=== PATIENT | female | born 1950 | race Caucasian/White ===

== ENCOUNTER 2017-08-15 20:06 | Emergency (ER) | payer OTHER ==
[~2017-08-15 20:06] MED LIST: LISI-363 PO; METF-324 PO
[2017-08-15 21:57] VITALS: BP 135/78; PULSE 70; RESP 18; TEMP 97.9; O2SAT 97
[2017-08-15] MEDS ORDERED: METF500T PO (23:21)
[2017-08-15] MEDS ORDERED: LISI10TA3 PO (23:22)
--- NOTE | 2017-08-15 23:25 | PD ---
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 This is a 66-year-old female with history of diabetes and hypertension, here for evaluation of several complaints. The patient complains of having pain all over. She is complaining of headache that started 2 days ago, constant, gradual onset, pressure, currently 8 out of 10 that radiates into her neck, back , and bilateral hips. These other pains have been going on for quite some time. She has been out of her metformin and lisinopril for about a week. She called her primary care physician's office yesterday and outpatient labs were ordered. She denies fevers or chills. She has taken ibuprofen with only mild relief of symptoms. PFSH Past Medical History Diabetes: Yes Patient Takes Glucophage: No (UNKNOWN ) Diminished Hearing: No Hypertension: Yes Musculoskeletal: Yes (DEGENERATIVE DISC DISEASE) ?: Not Past Surgical History Appendectomy: Yes Other Surgery: No Social History Alcohol Use: No Tobacco Use: No Substance Use: No Allergies-Medications (Allergen,Severity, Reaction): Coded Allergies: No Known Allergies (Verified Adverse Reaction, Unknown, 08/15/17) Reported Meds & Prescriptions Reported Meds & Active Scripts Active Reported Lisinopril 10 Mg Tab 10 Mg PO DAILY Metformin (Metformin HCl) 500 Mg Tab 500 Mg PO BIDPC Review of Systems Except as stated in HPI: all other systems reviewed are Neg Physical Exam Narrative GENERAL: Well-developed, well-nourished, ambulated from triage to exam room without difficulty and without assistance, no apparent distress. SKIN: Focused skin assessment warm/dry. HEAD: Atraumatic. Normocephalic. EYES: Pupils equal and round. No scleral icterus. No injection or drainage. ENT: Mucous membranes pink and moist. NECK: Trachea midline. No JVD. CARDIOVASCULAR: Regular rate and rhythm. Distal pulses brisk and equal bilaterally. RESPIRATORY: No accessory muscle use. Clear to auscultation. Breath sounds equal bilaterally. GASTROINTESTINAL: Abdomen soft, non-tender, nondistended. MUSCULOSKELETAL: No obvious deformities. No clubbing. No cyanosis. No edema. NEUROLOGICAL: Awake and alert. No obvious cranial nerve deficits. Motor grossly within normal limits. Normal speech. PSYCHIATRIC: Appropriate mood and affect; insight and judgment normal. Data Data Last Documented VS Vital Signs Date Time Temp Pulse Resp B/P (MAP) Pulse Ox O2 Delivery O2 Flow Rate FiO2 08/16/17 00:10 64 135/78 (97) 141/72 (95) 08/16/17 00:00 98 Room Air 08/15/17 21:57 97.9 18 Orders Orders Electrocardiogram (08/15/17 23:22) Ckmb (Isoenzyme) Profile (08/15/17 23:22) Complete Blood Count With Diff (08/15/17 23:22) Comprehensive Metabolic Panel (08/15/17 23:22) Magnesium (Mg) (08/15/17 23:22) Prothrombin Time / Inr (Pt) (08/15/17 23:22) Act Partial Throm Time (Ptt) (08/15/17 23:22) Troponin I (08/15/17 23:22) Chest, Single Ap (08/15/17 23:22) Ecg Monitoring (08/15/17 23:22) Bilateral Bp Monitoring (08/15/17 23:22) Iv Access Insert/Monitor (08/15/17 23:22) Oximetry (08/15/17 23:22) Oxygen Administration (08/15/17 23:22) Sodium Chloride 0.9% Flush (Ns Flush) (08/15/17 23:30) Lipase (08/15/17 23:22) Ct Brain W/O Iv Contrast(Rout) (08/15/17 ) Ct Cerv Spine W/O Contrast (08/15/17 ) Metoclopramide Inj (Reglan Inj) (08/15/17 23:30) Ketorolac Inj (Toradol Inj) (08/15/17 23:30) CKMB (08/15/17 23:42) CKMB% (08/15/17 23:42) Mri C Spine W/O Contrast (08/16/17 ) Mri L Spine W/O Contrast (08/16/17 ) Mri T Spine W/O Contrast (08/16/17 ) Mri Brain W/O Contrast (08/16/17 ) Acetaminophen (Tylenol) (08/16/17 05:00) Labs Laboratory Tests Test 08/15/17 23:42 White Blood Count 6.4 TH/MM3 Red Blood Count 4.83 MIL/MM3 Hemoglobin 13.9 GM/DL Hematocrit 40.5 % Mean Corpuscular Volume 83.9 FL Mean Corpuscular Hemoglobin 28.9 PG Mean Corpuscular Hemoglobin Concent 34.4 % Red Cell Distribution Width 13.2 % Platelet Count 251 TH/MM3 Mean Platelet Volume 9.6 FL Neutrophils (%) (Auto) 30.9 % Lymphocytes (%) (Auto) 56.6 % Monocytes (%) (Auto) 6.0 % Eosinophils (%) (Auto) 5.6 % Basophils (%) (Auto) 0.9 % Neutrophils # (Auto) 2.0 TH/MM3 Lymphocytes # (Auto) 3.6 TH/MM3 Monocytes # (Auto) 0.4 TH/MM3 Eosinophils # (Auto) 0.4 TH/MM3 Basophils # (Auto) 0.1 TH/MM3 CBC Comment DIFF FINAL Differential Comment Prothrombin Time 10.1 SEC Prothromb Time International Ratio 1.0 RATIO Activated Partial Thromboplast Time 29.4 SEC Blood Urea Nitrogen 19 MG/DL Creatinine 0.75 MG/DL Random Glucose 100 MG/DL Total Protein 7.6 GM/DL Albumin 3.8 GM/DL Calcium Level 9.3 MG/DL Magnesium Level 2.1 MG/DL Alkaline Phosphatase 101 U/L Aspartate Amino Transf (AST/SGOT) 22 U/L Alanine Aminotransferase (ALT/SGPT) 29 U/L Total Bilirubin 0.3 MG/DL Sodium Level 139 MEQ/L Potassium Level 4.3 MEQ/L Chloride Level 104 MEQ/L Carbon Dioxide Level 25.7 MEQ/L Anion Gap 9 MEQ/L Estimat Glomerular Filtration Rate 78 ML/MIN Total Creatine Kinase 116 U/L Creatine Kinase MB 2.1 NG/ML Troponin I LESS THAN 0.02 NG/ML Lipase 169 U/L MDM Medical Decision Making Medical Screen Exam Complete: Yes Emergency Medical Condition: Yes Medical Record Reviewed: Yes Differential Diagnosis Tension headache, cluster headache, migraine headache, SAH/meningitis/ encephalitis unlikely, cervical strain, PMR, hyperglycemia, ACS, dissection unlikely Narrative Course Vital signs reviewed. CBC is essentially unremarkable. CMP is unremarkable. Lipase is 169. Cardiac enzymes are negative. CT head: CONCLUSION: No acute intracranial findings. CT cervical spine: CONCLUSION: Prominent multilevel degenerative findings of the cervical spine. Broad-based disc osteophyte complex and central disc protrusion at C6-7 resulting in severe central canal narrowing. Broad-based disc osteophyte complex at C5-6 resulting in moderate severity central canal narrowing. Neural foraminal narrowing at multiple levels. Patient was made aware of all findings. She is resting comfortably. She still has a slight frontal headache, however her head and neck pain has improved after receiving IV Reglan and IV Toradol. She does report feeling paresthesias in her bilateral hands and feet. T there is no notable weakness in her upper or lower extremities on physical exam. Given CT cervical spine findings, MRI of the entire spine will be ordered to evaluate for possible cord compression. MRI cervical spine: CONCLUSION: Degenerative findings of cervical spine. Broad-based disc osteophyte complexes at C5-6 and C6-7 result in moderate severity central canal stenosis at these levels. There is effacement of the CSF anteriorly and posteriorly at these levels. Mild spinal cord deformity anteriorly at C5-6. No spinal cord deformity at C6-7. No spinal cord signal abnormality identified. MRI T-spine: CONCLUSION: Small right lateral disc protrusion at T1-2. Central canal diameter within normal limits at all levels. Neural foraminal diameters within normal limits at all levels. MRI L-spine: CONCLUSION: Multilevel degenerative findings in lumbar spine. At L4-5 there is broad-based disc bulge and facet arthrosis resulting in mild central canal narrowing mild bilateral neural foraminal narrowing. At L5-S1 there is moderate to severe bilateral facet arthrosis with mild grade 1 anterolisthesis. Central canal diameter within normal limits at this level. MRI brain: CONCLUSION: Brain MRI within normal limits for age. 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 She is resting comfortably. Normal motor strength in bilateral upper and lower extremities. No physical exam findings to suggest cord compression. The patient also endorses that she has had lumbar injections in the past. She is overall very well-appearing and is very pleasant. All questions were answered. She was provided a copy of all MRI reports. She is stable for discharge home with outpatient follow-up with her primary care physician this week. I will also give her the name of the on-call neurosurgeon whom she can make an appointment with this week. She was advised on when to return to the emergency department. She verbalizes understanding and agreement with plan. Diagnosis Primary Impression: Headache Qualified Codes: R51 - Headache Additional Impressions: Spinal stenosis Qualified Codes: M48.00 - Spinal stenosis, site unspecified Osteoarthritis Qualified Codes: M19.90 - Unspecified osteoarthritis, unspecified site Referrals: Jonathon Heard MD 3 days Neurosurgeon Primary Care Physician 3 days Additional Instructions: Follow-up with your primary care physician this week. Return to the emergency department for worsening symptoms or any other concerns. Scripts Naproxen (Naproxen) 500 Mg Tab 500 MG PO BID for 14 Days, #28 TAB 0 Refills Prov: Emir James MD 08/16/17 Disposition: 01 DISCHARGE HOME Condition: Stable Emir James MD Aug 15, 2017 23:25
[2017-08-15] MEDS ORDERED: SODIUM CHLORIDE 0.9% FLUSH 10 ML FLUSH IVF PRN (23:30)
[2017-08-15] MEDS ORDERED: METOCLOPRAMIDE HCL 10 MG/2 ML VIAL IV PUSH ONE (23:30)
[2017-08-15] MEDS ORDERED: KETOROLAC TROMETHAMINE 30 MG/ML (IVP) VIAL IV PUSH ONE (23:30)
[2017-08-15 23:52] LABS: BASOPHIL # 0.1 TH/MM3 (0-0.2); BASOPHIL % 0.9 % (0.0-2.0); EOSINOPHIL # 0.4 TH/MM3 (0-0.4); EOSINOPHIL % 5.6 % (0.0-4.0); HEMATOCRIT 40.5 % (35.0-46.0); HEMOGLOBIN 13.9 GM/DL (11.6-15.3); LYMPH % 56.6 % (9.0-44.0); LYMPHOCYTE # 3.6 TH/MM3 (1.0-4.8); MEAN CELL VOLUME 83.9 FL (80.0-100.0); MEAN CORPUSCULAR HEMOGLOBIN 28.9 PG (27.0-34.0); MEAN CORPUSCULAR HGB CONC 34.4 % (32.0-36.0); MEAN PLATELET VOLUME 9.6 FL (7.0-11.0); MONOCYTE # 0.4 TH/MM3 (0-0.9); NEUT % 30.9 % (16.0-70.0); PLATELET COUNT 251 TH/MM3 (150-450); RED BLOOD COUNT 4.83 MIL/MM3 (4.00-5.30); RED CELL DISTRIBUTION WIDTH 13.2 % (11.6-17.2); WHITE BLOOD COUNT 6.4 TH/MM3 (4.0-11.0)
[2017-08-16] VITALS: O2SAT 98
--- NOTE | 2017-08-16 00:01 | RADRPT ---
EXAM DATE/TIME: 08/15/2017 23:45 [facility] COMPARISON: No previous studies available for comparison. INDICATIONS : Cephalgia. RADIATION DOSE: 32.10 CTDIvol (mGy) MEDICAL HISTORY : Hypertension. SURGICAL HISTORY : Appendectomy. Hysterectomy. ENCOUNTER: Initial ACUITY: 2 days PAIN SCALE: 5/10 LOCATION: Bilateral cranial TECHNIQUE: Multiple contiguous axial images were obtained of the head. Using automated exposure control and adj ustment of the mA and/or kV according to patient size, radiation dose was kept as low as reasonably a chievable to obtain optimal diagnostic quality images. DICOM format image data is available electro nically for review and comparison. FINDINGS: CEREBRUM: The ventricles are normal for age. No evidence of midline shift, mass lesion, hemorrhage or acute in farction. No extra-axial fluid collections are seen. POSTERIOR FOSSA: The cerebellum and brainstem are intact. The 4th ventricle is midline. The cerebellopontine angle i s unremarkable. EXTRACRANIAL: The visualized portion of the orbits is intact. SKULL: The calvaria is intact. No evidence of skull fracture. CONCLUSION: No acute intracranial findings. Ricco Edmondson MD on August 15, 2017 at 23:57 Board Certified Radiologist. This report was verified electronically.
[2017-08-16 00:03] LABS: PROTHROMBIN TIME - PATIENT 10.1 SEC (9.8-11.6)
--- NOTE | 2017-08-16 00:09 | RADRPT ---
EXAM DATE/TIME: 08/15/2017 23:45 [facility] COMPARISON: No previous studies available for comparison. INDICATIONS : Neck pain. RADIATION DOSE: 21.39 CTDIvol (mGy) MEDICAL HISTORY : Hypertension. SURGICAL HISTORY : Appendectomy. Hysterectomy. ENCOUNTER: Initial ACUITY: 2 days PAIN SCALE: 5/10 LOCATION: neck TECHNIQUE: Volumetric scanning of the cervical spine was performed. Multiplanar reconstructions in the sagittal, coronal and oblique axial planes were performed. Using automated exposure control and adjustment o f the mA and/or kV according to patient size, radiation dose was kept as low as reasonably achievable to obtain optimal diagnostic quality images. DICOM format image data is available electronically f or review and comparison. FINDINGS: VERTEBRAE: Normal vertebral body height. ALIGNMENT: No evidence of subluxation. C2-C3: Moderate severity left-sided facet arthrosis. Mild right-sided facet arthrosis. No evidence of focal disc protrusion. Mild left neural foraminal narrowing. C3-C4: Moderate right-sided facet arthrosis mild left ductus arteriosus. Moderate bilateral neural foraminal narrowing. Broad-based disc bulge. Minimal central canal narrowing. C4-C5: Moderate right-sided facet arthrosis. Mild left-sided facet arthrosis. Mild right neural foraminal na rrowing. Mild left neuroforaminal narrowing. Broad-based disc osteophyte complex. Minimal central can al narrowing. C5-C6: Broad-based disc osteophyte complex left greater than right. Moderate right mild left facet arthrosis . Severe left neural foraminal narrowing. Moderate to severe right neural foraminal narrowing. Modera te severity central canal narrowing left greater than right. C6-C7: Broad-based disc osteophyte complex with superimposed central disc protrusion and mild bilateral face t arthrosis. Severe central canal narrowing. Moderate bilateral neural foraminal narrowing. C7-T1: No evidence of focal disc protrusion. Central canal normal diameter. Neural foraminal diameters withi n normal limits. CONCLUSION: Prominent multilevel degenerative findings of the cervical spine. Broad-based disc osteophyte complex and central disc protrusion at C6-7 resulting in severe central canal narrowing. Broad-based disc os teophyte complex at C5-6 resulting in moderate severity central canal narrowing. Neural foraminal hoang rowing at multiple levels. Ricco Edmondson MD on August 16, 2017 at 0:01 Board Certified Radiologist. This report was verified electronically.
[2017-08-16 00:10] VITALS: BP_SYST 135; BP_SYST 141; BP_DIAS 72; BP_DIAS 78; PULSE 64
--- NOTE | 2017-08-16 00:13 | RADRPT ---
EXAM DATE/TIME: 08/16/2017 00:00 [facility] COMPARISON: No previous studies available for comparison. INDICATIONS : Chest pain. MEDICAL HISTORY : Hypertension. Diabetes. SURGICAL HISTORY : Appendectomy. ENCOUNTER: Initial ACUITY: 1 day PAIN SCORE: 7/10 LOCATION: Bilateral chest FINDINGS: Single AP view of the chest. Moderate cardiac silhouette enlargement. Lungs clear. No evidence of ple ural effusion or pneumothorax. CONCLUSION: Moderate cardiac silhouette enlargement. No other acute cardiopulmonary disease identified. Ricco Edmondson MD on August 16, 2017 at 0:10 Board Certified Radiologist. This report was verified electronically.
[2017-08-16 00:48] LABS: ALBUMIN 3.8 GM/DL (3.4-5.0); AST (GOT) 22 U/L (15-37); BICARBONATE 25.7 MEQ/L (21.0-32.0); BLOOD UREA NITROGEN 19 MG/DL (7-18); CALCIUM 9.3 MG/DL (8.5-10.1); CHLORIDE 104 MEQ/L (98-107); CREATININE 0.75 MG/DL (0.50-1.00); GLOMERULAR FILTRATION RATE 78 ML/MIN (>89); GLUCOSE,RANDOM 100 MG/DL (74-106); MAGNESIUM 2.1 MG/DL (1.5-2.5); SODIUM (NA) 139 MEQ/L (136-145)
[2017-08-16 00:50] LABS: ALKALINE PHOSPHATASE 101 U/L (45-117); ALT (GPT) 29 U/L (10-53); TOTAL BILIRUBIN ADULT 0.3 MG/DL (0.2-1.0); TOTAL PROTEIN 7.6 GM/DL (6.4-8.2); TROPONIN I LESS THAN 0.02 NG/ML (0.02-0.05)
--- NOTE | 2017-08-16 03:58 | RADRPT ---
EXAM DATE/TIME: 08/16/2017 03:32 [facility] COMPARISON: No previous studies available for comparison. INDICATIONS : Pain. MEDICAL HISTORY : Hypertension. SURGICAL HISTORY : Appendectomy. ENCOUNTER: Subsequent ACUITY: 1 day PAIN SCORE: 3/10 LOCATION: back. TECHNIQUE: Multiplanar multisequence MRI of the thoracic spine was performed. FINDINGS: VERTEBRA: Normal vertebral body height. Homogeneous marrow signal. ALIGNMENT: Normal. CORD: Normal position and configuration. T1-T2: Right lateral disc protrusion. Central canal diameter within normal limits. Neural renal diameters wi thin normal limits. T2-T3: The thecal sac has a normal diameter. No evidence of disc bulge or protrusion. T3-T4: The thecal sac has a normal diameter. No evidence of disc bulge or protrusion. T4-T5: The thecal sac has a normal diameter. No evidence of disc bulge or protrusion. T5-T6: The thecal sac has a normal diameter. No evidence of disc bulge or protrusion. T6-T7: The thecal sac has a normal diameter. No evidence of disc bulge or protrusion. T7-T8: The thecal sac has a normal diameter. No evidence of disc bulge or protrusion. T8-T9: The thecal sac has a normal diameter. No evidence of disc bulge or protrusion. T9-T10: The thecal sac has a normal diameter. No evidence of disc bulge or protrusion. T10-T11: The thecal sac has a normal diameter. No evidence of disc bulge or protrusion. T11-T12: The thecal sac has a normal diameter. No evidence of disc bulge or protrusion. T12-L1: The thecal sac has a normal diameter. No evidence of disc bulge or protrusion. CONCLUSION: Small right lateral disc protrusion at T1-2. Central canal diameter within normal limits at all level s. Neural foraminal diameters within normal limits at all levels. Ricco Edmondson MD on August 16, 2017 at 3:55 Board Certified Radiologist. This report was verified electronically.
--- NOTE | 2017-08-16 04:06 | RADRPT ---
EXAM DATE/TIME: 08/16/2017 03:32 [facility] COMPARISON: No previous studies available for comparison. INDICATIONS : Pain. MEDICAL HISTORY : Hypertension. SURGICAL HISTORY : Appendectomy. ENCOUNTER: Subsequent ACUITY: 1 day PAIN SCORE: 3/10 LOCATION: neck. TECHNIQUE: Multiplanar, multisequence MRI examination of the cervical spine was performed. FINDINGS: VERTEBRAE: Normal vertebral body height. Homogeneous marrow signal. ALIGNMENT: No evidence of subluxation. CORD: Normal configuration and signal. POST FOSSA: The cerebellar tonsils are normal in position. C2-C3: Bilateral facet arthrosis. No evidence of focal disc protrusion. Central canal diameter within normal limits. Moderate left neural foraminal narrowing. C3-C4: Bilateral facet arthrosis. No focal disc protrusion. Central canal diameter within normal limits. Mil d bilateral neural foraminal narrowing. C4-C5: Right greater than left facet arthrosis. Mild bilateral neural foraminal narrowing. Central canal edmundo meter within normal limits. C5-C6: Broad-based disc osteophyte complex. Effacement of the CSF anteriorly and posteriorly. AP diameter of the central canal is 5 mm. Mild deformity of the spinal cord anteriorly. No spinal cord signal abnor mality identified. Moderate severity bilateral neural foraminal narrowing. C6-C7: Broad-based disc osteophyte complex. Effacement of the CSF anteriorly and posteriorly. No evidence of spinal cord deformity. No spinal cord signal abnormality. AP diameter of the central canal is 6 mm. Moderate bilateral neural foraminal narrowing. C7-T1: The thecal sac has a normal configuration. There is no evidence of disc herniation or spinal canal s tenosis. The neural foramina are patent bilaterally. CONCLUSION: Degenerative findings of cervical spine. Broad-based disc osteophyte complexes at C5-6 and C6-7 resul t in moderate severity central canal stenosis at these levels. There is effacement of the CSF anterio rly and posteriorly at these levels. Mild spinal cord deformity anteriorly at C5-6. No spinal cord de formity at C6-7. No spinal cord signal abnormality identified. Ricco Edmondson MD on August 16, 2017 at 3:58 Board Certified Radiologist. This report was verified electronically.
--- NOTE | 2017-08-16 04:16 | RADRPT ---
EXAM DATE/TIME: 08/16/2017 03:32 [facility] COMPARISON: No previous studies available for comparison. INDICATIONS : Pain. MEDICAL HISTORY : Hypertension. SURGICAL HISTORY : Appendectomy. ENCOUNTER: Subsequent ACUITY: 1 day PAIN SCORE: 3/10 LOCATION: low back. TECHNIQUE: Multiplanar multisequence MRI of the lumbar spine was performed without contrast. FINDINGS: The most caudal appearing lumbar vertebra is numbered as L5. VERTEBRAE: Homogeneous signal. Minimal grade 1 anterolisthesis L5 on S1. CONUS: Normal level and configuration. T12-L1: The thecal sac has a normal diameter. No evidence of disc bulge or protrusion. The neural foramina are patent bilaterally. L1-L2: The thecal sac has a normal diameter. No evidence of disc bulge or protrusion. The neural foramina are patent bilaterally. L2-L3: Disc desiccation and minimal broad-based disc bulge. Mild bilateral facet arthrosis. No evidence of f ocal disc protrusion. Central canal normal diameter. Neural foraminal diameters within normal limits. L3-L4: Broad-based disc bulge and moderate bilateral facet arthrosis. Central canal diameter is within flex l limits. Minimal bilateral neural foraminal narrowing. L4-L5: Broad-based disc bulge and moderate bilateral facet arthrosis. Mild central canal narrowing. Mild nas ateral neural foraminal narrowing. L5-S1: Broad-based disc osteophyte complex and moderate to severe bilateral facet arthrosis. Thecal sac is n ormal diameter and configuration. Minimal bilateral neuroforaminal narrowing. CONCLUSION: Multilevel degenerative findings in lumbar spine. At L4-5 there is broad-based disc b ulge and facet arthrosis resulting in mild central canal narrowing mild bilateral neural foraminal na rrowing. At L5-S1 there is moderate to severe bilateral facet arthrosis with mild grade 1 anterolisth esis. Central canal diameter within normal limits at this level. Ricco Edmondson MD on August 16, 2017 at 4:09 Board Certified Radiologist. This report was verified electronically.
--- NOTE | 2017-08-16 04:32 | RADRPT ---
EXAM DATE/TIME: 08/16/2017 03:32 [facility] COMPARISON: No previous studies available for comparison. INDICATIONS : Cephalgia. MEDICAL HISTORY : Hypertension. SURGICAL HISTORY : Appendectomy. ENCOUNTER: Subsequent ACUITY: 1 day PAIN SCORE: 3/10 LOCATION: head. TECHNIQUE: Multiplanar, multisequence MRI of the brain was performed without contrast. FINDINGS: CEREBRUM: The ventricles are normal for age. No evidence of midline shift, mass lesion, hemorrhage or acute in farction. No extraaxial fluid collections are seen. The pituitary gland and suprasellar cistern are normal in configuration. WHITE MATTER: No significant signal abnormalities are seen in the white matter. POSTERIOR FOSSA: The cerebellum and brainstem are intact. The 4th ventricle is midline. The cerebellopontine angle is unremarkable. The cerebellar tonsils are normal in position. DIFFUSION IMAGING: No focal areas of restricted diffusion are seen. No evidence of acute infarction. EXTRACRANIAL: The visualized portions of the orbits and paranasal sinuses are unremarkable. CONCLUSION: Brain MRI within normal limits for age. Ricco Edmondson MD on August 16, 2017 at 4:27 Board Certified Radiologist. This report was verified electronically.
[2017-08-16] MEDS ORDERED: NAPR500T2 PO (04:55)
[2017-08-16] MEDS ORDERED: ACETAMINOPHEN 325 MG TAB PO ONE (05:00)
--- NOTE | 2017-08-16 16:44 | EKG ---
Date Performed: 08/15/2017 Time Performed: 23:36:39 PTAGE: 66 years EKG: Sinus rhythm WITH FIRST DEGREE AV BLOCK NONSPECIFIC T-WAVE ABNORMALITY Compared to previous tracing, GA interval is slightly longer, otherwise no significant change ABNORMAL ECG PREVIOUS TRACING : 03/08/2014 17.12 DOCTOR: Malik Dominguez Interpretating Date/Time 08/16/2017 16:44:16
== END 2017-08-16 05:20 | disposition home or self-care (01) ==
LOC: NEPE 20:06
DX: R51 Headache (principal); M48.02 Spinal stenosis, cervical region; M51.24 Other intervertebral disc displacement, thoracic region; I44.0 Atrioventricular block, first degree; R94.31 Abnormal electrocardiogram [ECG] [EKG]; E11.9 Type 2 diabetes mellitus without complications; I10 Essential (primary) hypertension
CPT/HCPCS: 70450; 70551; 71045; 72125; 72141; 72146; 72148; 80053; 82550; 82552; 83690; 83735; 84484; 85025; 85610; 85730; 93005; 96374; 96375; 99285; J1885; J2765